=== PATIENT | male | born 1990 | race Caucasian/White ===

== ENCOUNTER 2017-03-23 02:14 | Emergency (ER) | payer OTHER ==
[2017-03-23 02:21] VITALS: RESP 16; TEMP 97.9; O2SAT 98
[2017-03-23] MEDS ORDERED: ONDANSETRON 4 MG/2 ML VIAL IVP ONE (02:21)
[2017-03-23] MEDS ORDERED: NS 1,000 ML IV ONE (02:21)
[2017-03-23] MEDS ORDERED: FAMOTIDINE 20 MG in NS 100 ML IV ONE (02:32)
--- NOTE | 2017-03-23 02:36 | EDPHY ---
H & P Time Seen by Provider: 03/23/17 02:26 HPI/ROS: HPI Nausea vomiting. 26-year-old male by private vehicle with his father. This patient reports that at about 11:30 p.m. tonight he developed nausea followed by 2 episodes of nonbilious and nonbloody vomiting. He has had continued nausea since this time. No diarrhea. He denies any significant abdominal pain. He reports that he had eggs for dinner. He denies any significant change in his diet. No new restaurants. No ill contacts. No foreign travel. Last bowel movement was about 11:00 p.m.. He describes this is normal. No bloody or melenic stool. He has an interview with the police in the morning which she states he is nervous about. ROS: Constitutional: No fever, no chills. No weakness. Eyes: No discharge. No changes in vision. ENT: No sore throat. No nasal congestion or rhinorrhea. Respiratory: No cough. No shortness of breath. Cardiac: No chest pain, no palpitations. Gastrointestinal: No abdominal pain, as above, no diarrhea. Genitourinary: No hematuria. No dysuria or increased frequency with urination. Musculoskeletal: No back pain. No neck pain. No myalgias or arthralgias. Skin: No rashes. Neurological: No headache. No focal weakness or altered sensation. Past medical history: Appendectomy. No significant past medical history. Social history: Nonsmoker. Here with father. No alcohol. As above. Physical Exam: General Appearance: Alert, no distress. This patient is responding to questions appropriately and in full sentences. This patient appears well- hydrated and well-nourished. Eyes: Pupils equal and round no pallor or injection. No lid edema, erythema or injection. Respiratory: There are no retractions, lungs are clear to auscultation with good air movement bilaterally. Cardiovascular: Regular rate and rhythm. No murmur. Gastrointestinal: Abdomen is soft and nontender, no masses, bowel sounds normal. No focal tenderness at McBurney's point. No Gaytan sign. Neurological: Motor sensory function is grossly intact. Cranial nerves are normal. Gait is normal. Skin: Warm and dry, no rashes. Musculoskeletal: Neck is supple and nontender. Extremities are symmetrical. All joints range without pain or impingement. Psychiatric: No agitation. No depression. Database: EKG: Imaging: Procedures: Emergency department course: IV was placed. His vital signs were reviewed. His vital signs are normal. He is afebrile. He was started on IV normal saline with 1 L to be given over the next hour. He was initially given 4 mg of IV Zofran and 20 mg of IV Pepcid. His presentation is consistent with a gastritis. He has a benign abdomen. 3:15 a.m., patient re-evaluated. Doing much better. Denies any nausea. He has had no vomiting in the emergency department. Tolerating oral fluids. No abdominal pain. He feels comfortable going home with his father. I will prescribe him Zofran for any recurring nausea. Follow up with his primary care physician was discussed with him and his father. Return to emergency department precautions reviewed. All of her questions were answered. He was discharged in good condition. Differential Diagnosis: The differential diagnosis on this patient includes but is not limited to food borne illness, viral gastritis. Cholecystitis, pancreatitis, appendicitis, bowel obstruction, other surgical etiology unlikely. This represents a partial list of diagnoses considered. These considerations are based on history, physical exam, past history, reassessment and diagnostic testing. Smoking Status: Never smoked Constitutional: Initial Vital Signs Temperature (C) 36.6 C 03/23/17 02:18 Heart Rate 80 03/23/17 02:18 Respiratory Rate 16 03/23/17 02:18 Blood Pressure 128/90 H 03/23/17 02:18 O2 Sat (%) 98 03/23/17 02:18 O2 Delivery Mode Room Air Allergies/Adverse Reactions: No Known Allergies Allergy (Verified 02/07/14 18:58) Home Medications: Medication Instructions Recorded No Medications [No Meds] 12/01/12 Ondansetron Odt [Zofran Odt 4 mg 4 mg PO Q4PRN PRN #10 tab 03/23/17 (*)] Medical Decision Making - Data Points Medications Given: Discontinued Medications Sodium Chloride (Ns) 1,000 mls @ 0 mls/hr IV ONCE ONE; Wide Open PRN Reason: Protocol Stop: 03/23/17 02:22 Last Admin: 03/23/17 02:24 Dose: 1,000 mls Famotidine 20 mg/ Sodium (Chloride) 102 mls @ 408 mls/hr IV EDNOW ONE Stop: 03/23/17 02:46 Last Admin: 03/23/17 02:36 Dose: 102 mls Ondansetron HCl (Zofran) 4 mg IVP EDNOW ONE Stop: 03/23/17 02:22 Last Admin: 03/23/17 02:25 Dose: 4 mg Ondansetron HCl (Zofran Odt 4 Mg Prepack#2) 1 btl TAKEHOME EDNOW ONE Stop: 03/23/17 02:52 Last Admin: 03/23/17 03:04 Dose: 1 btl Departure - Departure Disposition: Home, Routine, Self-Care Clinical Impression: Nausea and vomiting Condition: Good Instructions: Ondansetron (By mouth), Acute Nausea and Vomiting (ED) Additional Instructions: Read and follow provided instructions. Follow-up with your primary care physician tomorrow for re-evaluation as needed. Take medication as prescribed for nausea. Return to the emergency department for worsening abdominal pain, vomiting and inability to keep fluids down despite medications, fever or other serious concerns. Referrals: [facility] [Outside] - As per Instructions Stand Alone Forms: Work Excuse Prescriptions: Ondansetron Odt [Zofran Odt 4 mg (*)] 4 mg PO Q4PRN PRN #10 tab PRN Reason: For Nausea & Vomiting
[2017-03-23] MEDS ORDERED: ONDANSETRON 4MG PREPACK#2 BTL TAKEHOME ONE (02:51)
[2017-03-23 03:16] VITALS: BP 137/72; PULSE 79
== END 2017-03-23 03:15 | disposition home or self-care (01) ==
LOC: CED 02:14
PROC: 3E0337Z Introduction of Electrolytic and Water Balance Substance into Peripheral Vein, Percutaneous Approach (ICD-10-PCS; principal; 2017-03-23)
DX: R11.2 Nausea with vomiting, unspecified (principal); E86.9 Volume depletion, unspecified
CPT/HCPCS: 96374; J2405

== ENCOUNTER 2018-03-31 22:14 | Emergency (ER) | payer OTHER ==
[2018-03-31] MEDS ORDERED: NS 1,000 ML IV ONE ×2 (22:21→22:23)
[2018-03-31] MEDS ORDERED: ONDANSETRON 4 MG/2 ML VIAL IVP ONE (22:21)
[2018-03-31] MEDS ORDERED: FAMOTIDINE 20 MG in NS 100 ML IV ONE (22:23)
--- NOTE | 2018-03-31 22:43 | EDPHY ---
H & P Smoking Status: Never smoked Time Seen by Provider: 03/31/18 22:39 HPI/ROS: HPI Nausea, vomiting, diarrhea. 27-year-old male by private vehicle. This patient reports that for the last 5- 6 hours he has had nausea with 1 episode of nonbilious, nonbloody vomiting and 4 episodes of watery loose stools. He denies any bloody or melenic stool. He has not had a fever. He describes having some intermittent crampy abdominal discomfort. He states that he feels very dehydrated and is requesting IV fluids. He denies change in diet. No ill contacts. No foreign travel. ROS: Constitutional: No fever, no chills. No weakness. ENT: No sore throat. No nasal congestion or rhinorrhea. Respiratory: No cough. No shortness of breath. Cardiac: No chest pain, no palpitations. Gastrointestinal: As above. Genitourinary: No hematuria. No dysuria or increased frequency with urination. Musculoskeletal: No back pain. No neck pain. No myalgias or arthralgias. Skin: No rashes. Neurological: No headache. No focal weakness or altered sensation. Past medical history: Orthopedic injuries, appendectomy. Social history: Here by himself. Nonsmoker. No alcohol. Physical Exam: General Appearance: Alert, no distress. This patient is responding to questions appropriately and in full sentences. This patient appears well- hydrated and well-nourished. Eyes: Pupils equal and round no pallor or injection. No lid edema, erythema or injection. Gastrointestinal: Abdomen is soft and nontender on palpation throughout, no masses, bowel sounds normal. No focal tenderness at McBurney's point. No Gaytan sign. Neurological: Motor sensory function is grossly intact. Cranial nerves are normal. Gait is normal. Skin: Warm and dry, no rashes. Musculoskeletal: Neck is supple and nontender. Extremities are symmetrical. All joints range without pain or impingement. Psychiatric: No agitation. No depression. Database: EKG: Imaging: Procedures: Emergency department course: Triage vital signs reviewed and are normal. An IV was placed. He was started on IV normal saline with 1-2 L to be given over the next 1-2 hours. He was given 4 mg of IV Zofran and 20 mg of IV Pepcid. He has a benign abdomen. 11:00 p.m., care turned over to Dr. Carpenter. The patient is currently finishing his IV fluids. His presentation is consistent with a food-borne illness or viral gastroenteritis. Expected disposition is discharge to home. Differential Diagnosis: The differential diagnosis on this patient includes but is not limited to food borne illness, gastroenteritis. Appendicitis, cholecystitis, bowel obstruction , other surgical etiology unlikely. This represents a partial list of diagnoses considered. These considerations are based on history, physical exam , past history, reassessment and diagnostic testing. (Tanvir Hays) Constitutional: Initial Vital Signs Temperature (C) 36.7 C 03/31/18 22:16 Heart Rate 91 03/31/18 22:16 Respiratory Rate 16 03/31/18 22:16 Blood Pressure 130/85 H 03/31/18 22:16 O2 Sat (%) 95 03/31/18 22:16 O2 Delivery Mode Room Air Allergies/Adverse Reactions: No Known Allergies Allergy (Verified 02/07/14 18:58) Home Medications: Medication Instructions Recorded No Medications [No Meds] 12/01/12 Ondansetron Odt [Zofran Odt 4 mg 4 mg PO Q4PRN PRN #10 tab 03/31/18 (*)] Medical Decision Making ED Course/Re-evaluation: 11:12 pm, rechecked patient , feeling better, discussed oral rehydration therapy at home and indications to return. Still has some fluds to go in but likely home after fluids complete. (Tiffany Carpenter) - Data Points Laboratory Results: 03/31/18 22:45 POC Sodium 140 mEq/L mEq/L (135-145) POC Potassium 3.5 mEq/L mEq/L (3.3-5.0) POC Chloride 105.0 mEq/L mEq/L (97-110) POC Total CO2 26 mEq/L mEq/L (22-31) POC BUN 10 mg/dL mg/dL (7-23) POC Creatinine 0.9 mg/dL mg/dL (0.7-1.3) POC Glucose 112 mg/dL H mg/dL (70-100) POC Calcium 10.1 mg/dL mg/dL (8.5-10.4) Medications Given: Discontinued Medications Sodium Chloride (Ns) 1,000 mls @ 0 mls/hr IV ONCE ONE; Wide Open PRN Reason: Protocol Stop: 10/13/18 22:22 Last Admin: 03/31/18 22:26 Dose: 1,000 mls Sodium Chloride (Ns) 1,000 mls @ 0 mls/hr IV EDNOW ONE; Wide Open PRN Reason: Protocol Stop: 03/31/18 22:24 Last Admin: 03/31/18 22:51 Dose: 1,000 mls Famotidine 20 mg/ Sodium (Chloride) 102 mls @ 408 mls/hr IV EDNOW ONE Stop: 03/31/18 22:37 Last Admin: 03/31/18 22:29 Dose: 102 mls Ondansetron HCl (Zofran) 4 mg IVP EDNOW ONE Stop: 03/31/18 22:22 Last Admin: 03/31/18 22:25 Dose: 4 mg Point of Care Test Results: Chemistry 03/31/18 22:45 POC Sodium 140 mEq/L mEq/L (135-145) POC Potassium 3.5 mEq/L mEq/L (3.3-5.0) POC Chloride 105.0 mEq/L mEq/L (97-110) POC Total CO2 26 mEq/L mEq/L (22-31) POC BUN 10 mg/dL mg/dL (7-23) POC Creatinine 0.9 mg/dL mg/dL (0.7-1.3) POC Glucose 112 mg/dL H mg/dL (70-100) POC Calcium 10.1 mg/dL mg/dL (8.5-10.4) Departure - Departure Disposition: Home, Routine, Self-Care Clinical Impression: Vomiting and diarrhea Condition: Good Instructions: Ondansetron (By mouth), Gastroenteritis (ED) Additional Instructions: Read and follow provided instructions. Follow-up with your primary care physician on Monday for re-evaluation as needed Take medication as prescribed for nausea. Return to the emergency department for worsening symptoms, worsening abdominal pain, vomiting and inability to keep fluids down despite medications or other serious concerns. Referrals: Patient,NotPresent [Primary Care Provider] - As per Instructions Prescriptions: Ondansetron Odt [Zofran Odt 4 mg (*)] 4 mg PO Q4PRN PRN #10 tab PRN Reason: For Nausea & Vomiting
[2018-03-31] MEDS ORDERED: ONDANSETRON 4MG PREPACK#2 BTL TAKEHOME ONE (22:48)
[2018-03-31 23:55] VITALS: BP 126/64
== END 2018-03-31 23:55 | disposition home or self-care (01) ==
LOC: CED 22:14
DX: R11.2 Nausea with vomiting, unspecified (principal); R19.7 Diarrhea, unspecified; E86.9 Volume depletion, unspecified
CPT/HCPCS: 80048-PO; 96365; J2405